=== PATIENT | male | born 1980 | race Caucasian/White ===

== ENCOUNTER 2023-04-24 17:20 | Emergency (ER) | payer SELFPAY ==
[2023-04-24 17:28] VITALS: BP 126/80; BP 148/87; PULSE 60; PULSE 68; RESP 20; TEMP 36.9; O2SAT 96; O2SAT 99; BMI 26.6
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
[2023-04-24 19:23] VITALS: BP 108/72; PULSE 95; RESP 16; TEMP 36.5; O2SAT 93
--- NOTE | 2023-04-24 21:02 | MHC.RECOVSUP ---
? Reason for consult:ETOH o? Current location:[facility]? o? Identified substance use concern:? -? Support ?? Intervention: o? Community resources provided ? Plan:Outpatient services ? Additional information:[facility] spoke with this pt about treatment, pt declined any inpatient treatment, [facility] provided pt with recovery resources as pt stated he wanted to seek outpatient services.
== END 2023-04-24 20:13 | disposition home or self-care (01) ==
PROVIDERS: Emergency Provider Emergency Medicine
DX: F19.90 Other psychoactive substance use, unspecified, uncomplicated (principal); F11.20 Opioid dependence, uncomplicated
CPT/HCPCS: 99284